=== PATIENT | female | born 1960 | race Caucasian/White ===

== ENCOUNTER 2024-10-01 20:49 | Emergency (ER) | payer OTHER, SELFPAY ==
[2024-10-01 20:57] VITALS: BP 139/68; PULSE 95; RESP 16; TEMP 36.6; O2SAT 98; BMI 31.6
--- NOTE | 2024-10-01 21:11 | ECG_ITS ---
Test Reason : MED CLEARANCE Blood Pressure : */* mmHG Vent. Rate : 90 BPM Atrial Rate : 90 BPM P-R Int : 152 ms QRS Dur : 80 ms QT Int : 398 ms P-R-T Axes : 74 3 32 degrees QTcB Int : 486 ms Artifact in tracing Normal sinus rhythm No obvious abnormalities cannot assess inferior leads due to artifact. No previous ECGs available Referred By: Generic ED Physician Electronically Signed By: LOU YANEZ
--- NOTE | 2024-10-01 21:18 | PC.NURSE ---
RN to RN report given to Cindy in POD, pt currently being changed over by Marina & in family room.
[2024-10-01 21:45] LABS: MANUAL DIFF FLAG NO
[2024-10-01 21:51] LABS: Basophils Percent Auto 0.6 % (0-2); Eosinophils Absolute Auto 0.1 X10*3/uL (0.0-0.4); Eosinophils Percent Auto 1.8 % (0-4); Hematocrit 40.3 % (37.0-47.0); Hemoglobin 13.6 g/dl (12.0-16.0); Imm Gran Abs Auto 0.02 X10*3/uL (0.00-0.03); Imm Gran Pct Auto 0.3 % (0.0-0.4); Lymphocytes Absolute Auto 2.3 X10*3/uL (1.2-4.9); Lymphocytes Percent Auto 31.6 % (20-40); Mean Corpuscular HGB Conc 33.7 g/dl (31.0-35.0); Mean Corpuscular Hemoglobin 32.2 pg (27.0-33.0); Mean Corpuscular Volume 95.5 fL (80.0-98.0); Mean Platelet Volume 10.4 fL (9.4-12.3); Monocytes Absolute Auto 0.7 X10*3/uL (0.1-1.2); Monocytes Percent Auto 9.1 % (2-11); Neutrophils Absolute Auto 4.1 x10*3/uL (2.0-8.3); Neutrophils Percent Auto 56.6 % (45-73); Platelet Count 315 X10*3/uL (160-400); Red Blood Count 4.22 X10*6/uL (4.20-5.50); Red Cell Distribution Width 13.6 % (11.0-16.0); White Blood Count 7.3 X10*3/uL (4.8-10.8)
[2024-10-01 21:52] LABS: Appearance Urine Clear; Color Urine Yellow; Glucose Urine UA Negative (Negative); Leukocyte Esterase Urine Negative (Negative); Nitrite Urine Negative (Negative); PH 6.5 (5.0-9.0); Specific Gravity - Urine <= 1.005 (1.005-1.025); Urine Blood Negative (Negative); Urine Ketones Trace mg/dL (Negative); Urine Protein Negative (Neg-Trace)
[2024-10-01 21:56] LABS: Amphetamine Screen Urine Not Detected (Not Detect); Barbiturates, Urine Not Detected (Not Detect); Benzodiazepines Screen Urine Not Detected (Not Detect); Buprenorphine Scr Not Detected (Not Detect); Cannabinoid Screen Urine Not Detected (Not Detect); Cocaine Screen Urine Not Detected (Not Detect); Fentanyl, urine Not Detected (Not Detect); Methadone Screen, Urine Not Detected (Not Detect); Opiate Screen Urine Not Detected (Not Detect); Oxycodone Screen Urine Not Detected (Not Detect); Phencyclidine Screen Urine Not Detected (Not Detect)
[2024-10-01 21:58] LABS: Anion Gap 16 (12-20); Blood Urea Nitrogen 8 mg/dL (9-16); Calcium 9.5 mg/dL (8.4-10.2); Carbon Dioxide 27 mmol/L (22-29); Chloride 103 mmol/L (96-108); Creatinine Clr Calc Pharmacy 95.2; Estimated Glomerular Filt Rate > 60; Ethanol < 10 mg/dL; Glucose Random 121 mg/dL (60-115); Potassium 3.8 mmol/L (3.3-5.1); Sodium 142 mmol/L (135-145)
--- NOTE | 2024-10-02 01:42 | ED_ITS ---
HPI - Anxiety General Chief Complaint: Anxiety Stated Complaint: crisis ptsd has lots of questions about BH Time Seen by Provider: 10/01/24 22:15 History of Present Illness ED Provider: Tevin De La Garza MD HPI narrative: This is a 64-year-old female with a history of anxiety. PCP attempting to treat this with SSRI which she tried for 1 month and she felt it increased her anxiety symptoms and stop. Recently she has been taking mirtazapine for insomnia. Patient also has longstanding type 1 diabetes. The patient's coming in feeling hopeless with significant anxiety trouble managing her symptoms outpatient. No SI or HI. She lives alone but has a male partner who she feels safe with. No drug or alcohol abuse. Patient feels challenging at this point taking care of her diabetes and functioning and eating daily life. She has tried to therapist a few times without success she is requesting evaluation for possible voluntary admission for stabilization Related Data Home Medications ?Medication ?Instructions ?Recorded ?Confirmed insulin degludec 100 unit/mL (3 14 unit subcut BEDTIME 10/02/24 10/02/24 mL) subcutaneous pen (Tresiba FlexTouch U-100 insulin) insulin lispro 100 unit/mL See Rx Instructions .Route .COMPLEX 10/02/24 10/02/24 subcutaneous pen (Humalog KwikPen (U-100) Insulin) levothyroxine 50 mcg tablet 50 mcg PO DAILY@0600 10/0210/03/24 mirtazapine 15 mg tablet 15 mg PO BEDTIME 10/02/24 Allergies Allergy/AdvReac Type Severity Reaction Status Date / Time No Known Allergies Allergy Verified 10/01/24 21:03 [facility] Social History Social History Smoked in Last 30 Days: No Use of substances other than those prescribed or required for medical reasons: No Advance Directives: No Advance Directives Information Provided: No Do you have a plan to hurt others: No Plan Patient : No Physical Exam 2 Vital Signs: Vital Signs: Last Vital Signs Temp 98.2 F 10/03/24 06:41 Pulse 79 10/03/24 06:41 Resp 16 10/03/24 06:41 BP 132/67 10/03/24 06:41 Pulse Ox 99 10/03/24 06:41 O2 Del Method Room Air 10/03/24 06:41 BMI result Body Mass Index 31.6 Const: Other: EXAM: Gen: Alert, awake, well appearing, well hydrated. Head: Atraumatic Eyes: Anicteric, Normal conjunctiva. ENT: Moist mucosa, no pallor. ? Neck: Supple. Skin: ?No observable rash or bruising on exposed or examined skin Respiratory: Breathing comfortably, No distress.Clear to auscultation bilaterally, symmetric chest expansion, No wheeze, rales, ronchi. Cardiovascular: Regular rate and rhythm. No murmurs or rub. Well perfused periphery, warm extremities. No edema. ? Abdominal: No FOCAL TENDERNESS. Soft, no objective distension. No palpable masses or obvious organomegaly. ?No guarding, no rebound tenderness or other peritoneal findings. : No flank tenderness. Neuro: Alert. Gross movement of all extremities intact. ? Psych: Calm. Cooperative. Expresses severe anxiety though looks calm no SI or HI. Well-kempt MSK: No grossly visible deformity. Vital signs: See flowsheet Course Reevaluation(s) Reevaluation #1: Time: 16:41 Date: 10/02/24 Provider: Idris Cline MD Patient in physician observation for psychiatric evaluation.? No acute events reported overnight. No current complaints. VS stable.? Patient is in bed search status. The patient was concerned that her insulin was not being managed based on counting of calories consumed. I explained to the patient that we had to use a sliding scale based on fingerstick glucose results. She expressed concern that she was not going to be receiving appropriate doses of insulin. She received Lantus insulin last night. I explained we would continue to monitor her glucose throughout the day. She ultimately seemed to accept this.. Will continue to monitor. Reevaluation #2: DR. Wesley's Progress note:10/03/2024 8;40. No events overnight, home medication reconciliation was done, VSS, no event reported by nursing overnight, inpatient bed search is underway, Continue with physician observation. Time: 08:39 Medications Administered Generic Name Dose Route Start Last Admin Trade Name Freq PRN Reason Stop Dose Admin Insulin Glargine 11 unit 10/02/24 21:00 10/02/24 21:47 Insulin Glargine,Hum.Rec.Anlog 100 Unit/Ml 10 Ml Vial SUBCUT 11 unit BEDTIME BABITA Administration Insulin Human Lispro 0 unit 10/03/24 16:30 10/03/24 12:58 Insulin Lispro 100 Unit/Ml 3 Ml Vial SUBCUT 6 unit QIDACHS [facility] Administration Protocol Levothyroxine Sodium 50 mcg 10/02/24 06:30 10/03/24 05:37 Levothyroxine Sodium 50 Mcg Tablet PO 50 mcg DAILY@0630 BABITA Administration Mirtazapine 15 mg 10/02/24 01:45 10/02/24 21:48 Mirtazapine 15 Mg Tablet PO 15 mg BEDTIME BABITA Administration Discontinued Medications Generic Name Dose Route Start Last Admin Trade Name Cori PRN Reason Stop Dose Admin Insulin Glargine 14 unit 10/02/24 02:13 10/02/24 02:31 Insulin Glargine,Hum.Rec.Anlog 100 Unit/Ml 10 Ml Vial SUBCUT 10/02/24 02:14 14 unit ONCE ONE Administration Insulin Human Lispro 0 unit 10/02/24 07:30 10/02/24 21:44 Insulin Lispro 100 Unit/Ml 3 Ml Vial SUBCUT 10/03/24 07:15 10 unit QIDACHS [facility] Administration Protocol Medical Decision Making Medical Decision Making MDM Narrative: 64-year-old female with severe debilitating anxiety. No SI or HI. No self-harm however she appears to not be able to manage her diabetes and other health and day-to-day issues given her anxiety level and insomnia. No drug abuse or alcohol abuse. Medically cleared at this time. Her long-acting insulin is non formulary written Lantus at 01:21 equivalent dose. Plan for a.m. psychiatry consultation the patient is desiring possible CV behavioral health admission though she does have concerns about her insurance. 10/02/242123 Arabella Cerrato MD The care team evaluated the patient. Patient will be going inpatient voluntarily. Patient having racing thoughts. No SI or HI. Patient not on a Section 12. Care team states that if the patient changes her mind throughout the night, she may be discharged home safely. Lab Data 10/01/24 21:39 10/01/24 21:39 Labs: Lab Results 10/01/24 10/02/24 10/02/24 Range/Units 21:39 07:26 09:50 WBC 7.3 (4.8-10.8) X10*3/uL RBC 4.22 (4.20-5.50) X10*6/uL Hgb 13.6 (12.0-16.0) g/dl Hct 40.3 (37.0-47.0) % MCV 95.5 (80.0-98.0) fL MCH 32.2 (27.0-33.0) pg MCHC 33.7 (31.0-35.0) g/dl RDW 13.6 (11.0-16.0) % Plt Count 315 (160-400) X10*3/uL MPV 10.4 (9.4-12.3) fL Immature Gran % (Auto) 0.3 (0.0-0.4) % Neut % (Auto) 56.6 (45-73) % Lymph % (Auto) 31.6 (20-40) % [place] % (Auto) 9.1 (2-11) % Eos % (Auto) 1.8 (0-4) % Baso % (Auto) 0.6 (0-2) % Lymph # (Auto) 2.3 (1.2-4.9) X10*3/uL [place] # (Auto) 0.7 (0.1-1.2) X10*3/uL Eos # (Auto) 0.1 (0.0-0.4) X10*3/uL Baso # (Auto) 0.0 (0.0-0.2) X10*3/uL Abs Immat Gran (auto) 0.02 (0.00-0.03) X10*3/uL Absolute Neuts (auto) 4.1 (2.0-8.3) x10*3/uL Absolute Nucleated RBC 0.000 (0.0-0.012) X10*3/uL Nucleated RBC % (auto) 0.0 (0.0-0.2) /100WBC Sodium 142 (135-145) mmol/L Potassium 3.8 (3.3-5.1) mmol/L Chloride 103 (96-108) mmol/L Carbon Dioxide 27 (22-29) mmol/L Anion Gap 16 (12-20) BUN 8 L (9-16) mg/dL Creatinine 0.64 (0.5-1.4) mg/dL Estim Creat Clear Calc 95.2 Estimated GFR > 60 POC Glucose 91 149 H (60-115) mg/dL Random Glucose 121 H (60-115) mg/dL Calcium 9.5 (8.4-10.2) mg/dL Urine Color Yellow Urine Appearance Clear Urine pH 6.5 (5.0-9.0) Ur Specific [place] <= 1.005 (1.005-1.025) Urine Protein Negative (Neg-Trace) mg/dL Urine Glucose (UA) Negative (Negative) mg/dL Urine Ketones Trace (Negative) mg/dL Urine Blood Negative (Negative) Urine Nitrite Negative (Negative) Ur Leukocyte Esterase Negative (Negative) Urine Opiates Screen Not Detected (Not Detect) Ur Buprenorphine Scrn Not Detected (Not Detect) ng/mL Ur Oxycodone Screen Not Detected (Not Detect) ng/mL Urine Methadone Screen Not Detected (Not Detect) ng/mL Urine Fentanyl Screen Not Detected (Not Detect) Ur Barbiturates Screen Not Detected (Not Detect) Ur Phencyclidine Scrn Not Detected (Not Detect) Ur Amphetamines Screen Not Detected (Not Detect) U Benzodiazepines Scrn Not Detected (Not Detect) Urine Cocaine Screen Not Detected (Not Detect) U Marijuana (THC) Screen Not Detected (Not Detect) Ethyl Alcohol < 10 mg/dL 10/02/24 10/02/24 10/02/24 Range/Units 13:07 15:20 17:21 WBC (4.8-10.8) X10*3/uL RBC (4.20-5.50) X10*6/uL Hgb (12.0-16.0) g/dl Hct (37.0-47.0) % MCV (80.0-98.0) fL MCH (27.0-33.0) pg MCHC (31.0-35.0) g/dl RDW (11.0-16.0) % Plt Count (160-400) X10*3/uL MPV (9.4-12.3) fL Immature Gran % (Auto) (0.0-0.4) % Neut % (Auto) (45-73) % Lymph % (Auto) (20-40) % [place] % (Auto) (2-11) % Eos % (Auto) (0-4) % Baso % (Auto) (0-2) % Lymph # (Auto) (1.2-4.9) X10*3/uL [place] # (Auto) (0.1-1.2) X10*3/uL Eos # (Auto) (0.0-0.4) X10*3/uL Baso # (Auto) (0.0-0.2) X10*3/uL Abs Immat Gran (auto) (0.00-0.03) X10*3/uL Absolute Neuts (auto) (2.0-8.3) x10*3/uL Absolute Nucleated RBC (0.0-0.012) X10*3/uL Nucleated RBC % (auto) (0.0-0.2) /100WBC Sodium (135-145) mmol/L Potassium (3.3-5.1) mmol/L Chloride (96-108) mmol/L Carbon Dioxide (22-29) mmol/L Anion Gap (12-20) BUN (9-16) mg/dL Creatinine (0.5-1.4) mg/dL Estim Creat Clear Calc Estimated GFR POC Glucose 178 H 303 H 305 H (60-115) mg/dL Random Glucose (60-115) mg/dL Calcium (8.4-10.2) mg/dL Urine Color Urine Appearance Urine pH (5.0-9.0) Ur Specific [place] (1.005-1.025) Urine Protein (Neg-Trace) mg/dL Urine Glucose (UA) (Negative) mg/dL Urine Ketones (Negative) mg/dL Urine Blood (Negative) Urine Nitrite (Negative) Ur Leukocyte Esterase (Negative) Urine Opiates Screen (Not Detect) Ur Buprenorphine Scrn (Not Detect) ng/mL Ur Oxycodone Screen (Not Detect) ng/mL Urine Methadone Screen (Not Detect) ng/mL Urine Fentanyl Screen (Not Detect) Ur Barbiturates Screen (Not Detect) Ur Phencyclidine Scrn (Not Detect) Ur Amphetamines Screen (Not Detect) U Benzodiazepines Scrn (Not Detect) Urine Cocaine Screen (Not Detect) U Marijuana (THC) Screen (Not Detect) Ethyl Alcohol mg/dL 10/02/24 10/02/24 10/03/24 Range/Units 21:33 22:44 06:21 WBC (4.8-10.8) X10*3/uL RBC (4.20-5.50) X10*6/uL Hgb (12.0-16.0) g/dl Hct (37.0-47.0) % MCV (80.0-98.0) fL MCH (27.0-33.0) pg MCHC (31.0-35.0) g/dl RDW (11.0-16.0) % Plt Count (160-400) X10*3/uL MPV (9.4-12.3) fL Immature Gran % (Auto) (0.0-0.4) % Neut % (Auto) (45-73) % Lymph % (Auto) (20-40) % [place] % (Auto) (2-11) % Eos % (Auto) (0-4) % Baso % (Auto) (0-2) % Lymph # (Auto) (1.2-4.9) X10*3/uL [place] # (Auto) (0.1-1.2) X10*3/uL Eos # (Auto) (0.0-0.4) X10*3/uL Baso # (Auto) (0.0-0.2) X10*3/uL Abs Immat Gran (auto) (0.00-0.03) X10*3/uL Absolute Neuts (auto) (2.0-8.3) x10*3/uL Absolute Nucleated RBC (0.0-0.012) X10*3/uL Nucleated RBC % (auto) (0.0-0.2) /100WBC Sodium (135-145) mmol/L Potassium (3.3-5.1) mmol/L Chloride (96-108) mmol/L Carbon Dioxide (22-29) mmol/L Anion Gap (12-20) BUN (9-16) mg/dL Creatinine (0.5-1.4) mg/dL Estim Creat Clear Calc Estimated GFR POC Glucose 383 H* 340 H 156 H (60-115) mg/dL Random Glucose (60-115) mg/dL Calcium (8.4-10.2) mg/dL Urine Color Urine Appearance Urine pH (5.0-9.0) Ur Specific [place] (1.005-1.025) Urine Protein (Neg-Trace) mg/dL Urine Glucose (UA) (Negative) mg/dL Urine Ketones (Negative) mg/dL Urine Blood (Negative) Urine Nitrite (Negative) Ur Leukocyte Esterase (Negative) Urine Opiates Screen (Not Detect) Ur Buprenorphine Scrn (Not Detect) ng/mL Ur Oxycodone Screen (Not Detect) ng/mL Urine Methadone Screen (Not Detect) ng/mL Urine Fentanyl Screen (Not Detect) Ur Barbiturates Screen (Not Detect) Ur Phencyclidine Scrn (Not Detect) Ur Amphetamines Screen (Not Detect) U Benzodiazepines Scrn (Not Detect) Urine Cocaine Screen (Not Detect) U Marijuana (THC) Screen (Not Detect) Ethyl Alcohol mg/dL 10/03/24 Range/Units 11:30 WBC (4.8-10.8) X10*3/uL RBC (4.20-5.50) X10*6/uL Hgb (12.0-16.0) g/dl Hct (37.0-47.0) % MCV (80.0-98.0) fL MCH (27.0-33.0) pg MCHC (31.0-35.0) g/dl RDW (11.0-16.0) % Plt Count (160-400) X10*3/uL MPV (9.4-12.3) fL Immature Gran % (Auto) (0.0-0.4) % Neut % (Auto) (45-73) % Lymph % (Auto) (20-40) % [place] % (Auto) (2-11) % Eos % (Auto) (0-4) % Baso % (Auto) (0-2) % Lymph # (Auto) (1.2-4.9) X10*3/uL [place] # (Auto) (0.1-1.2) X10*3/uL Eos # (Auto) (0.0-0.4) X10*3/uL Baso # (Auto) (0.0-0.2) X10*3/uL Abs Immat Gran (auto) (0.00-0.03) X10*3/uL Absolute Neuts (auto) (2.0-8.3) x10*3/uL Absolute Nucleated RBC (0.0-0.012) X10*3/uL Nucleated RBC % (auto) (0.0-0.2) /100WBC Sodium (135-145) mmol/L Potassium (3.3-5.1) mmol/L Chloride (96-108) mmol/L Carbon Dioxide (22-29) mmol/L Anion Gap (12-20) BUN (9-16) mg/dL Creatinine (0.5-1.4) mg/dL Estim Creat Clear Calc Estimated GFR POC Glucose 290 H (60-115) mg/dL Random Glucose (60-115) mg/dL Calcium (8.4-10.2) mg/dL Urine Color Urine Appearance Urine pH (5.0-9.0) Ur Specific [place] (1.005-1.025) Urine Protein (Neg-Trace) mg/dL Urine Glucose (UA) (Negative) mg/dL Urine Ketones (Negative) mg/dL Urine Blood (Negative) Urine Nitrite (Negative) Ur Leukocyte Esterase (Negative) Urine Opiates Screen (Not Detect) Ur Buprenorphine Scrn (Not Detect) ng/mL Ur Oxycodone Screen (Not Detect) ng/mL Urine Methadone Screen (Not Detect) ng/mL Urine Fentanyl Screen (Not Detect) Ur Barbiturates Screen (Not Detect) Ur Phencyclidine Scrn (Not Detect) Ur Amphetamines Screen (Not Detect) U Benzodiazepines Scrn (Not Detect) Urine Cocaine Screen (Not Detect) U Marijuana (THC) Screen (Not Detect) Ethyl Alcohol mg/dL Discharge Plan Discharge Clinical Impression: Acute anxiety Patient Disposition: Admitted As Inpatient
--- NOTE | 2024-10-02 01:50 | PC.NURSE ---
t/w spoke to client again who couldnt convey a numeric scale for humalog dosing stated i try to eat 40gms per meal)
[2024-10-02] MEDS: Insulin Glargine,Hum.rec.anlog 100 UNIT/ML 10 ML VIAL 14 UNIT SUBCUT (02:31)
[2024-10-02] MEDS: Mirtazapine 15 MG TABLET PO ×2 (02:31→21:48)
[2024-10-02 06:00] VITALS: RESP 16
[2024-10-02] MEDS: Levothyroxine Sodium 50 MCG TABLET PO (06:59)
--- NOTE | 2024-10-02 07:06 | PC.NURSE ---
Assumed care of patient at 0645, patient appears to be in no apparent distress this am, calm and cooperative, offering no complaints. Pt reporting to this RN that she does her sliding scale insulin based off carb counting rather than a point of care, Tor made aware. reports we are probably not able to accommodate carb counting dosing as we have no order set for that. Current plan for sliding scale based off POC
--- NOTE | 2024-10-02 07:21 | PC.NURSE ---
Pt expresses frustration over sliding scale insulin stating your insulin is not nearly as strong as the type I take, I need at least 14 units and I need to go off carb counting . Pt educated that Tresiba is a 1:1 substitute with Lantus and that we do not have a way to dose Lispro bedside the sliding scale POC. Pt informed that MD Steinberg and the pharmacist both confirmed this. Pt once again expresses frustration I am not going to dose at 2 units and then end up as a medical admission with a blood sugar of 500 .
[2024-10-02 07:32] VITALS: BP 136/73; PULSE 86; RESP 18; TEMP 37.1; O2SAT 99
[2024-10-02 07:32] LABS: Glucose, Whole Blood 91 mg/dL (60-115)
--- NOTE | 2024-10-02 07:36 | PC.NURSE ---
per pts morning POC (91), pt does not warrant Lispro this am (according to the sliding scale in the MAR). Pt demanding insulin from this RN. After speaking with MD Steinberg, decision was made to give pt 2 units of insulin along with her breakfast. when presented with this option, pt declined, stating No I am not going to be with a 500 blood sugar this is ridiculous . MD prince
[2024-10-02] MEDS: Insulin Lispro 100 UNIT/ML 3 ML VIAL SUBCUT ×4 (08:28→21:44)
[2024-10-02 09:54] LABS: Glucose, Whole Blood 149 mg/dL (60-115)
[2024-10-02 13:10] LABS: Glucose, Whole Blood 178 mg/dL (60-115)
[2024-10-02 15:24] LABS: Glucose, Whole Blood 303 mg/dL (60-115)
--- NOTE | 2024-10-02 15:26 | P.CNPS_ITS ---
History of Present Illness Chief Complaint: crisis ptsd has lots of questions about Diagnostics Vital Signs (24Hr): Vital Signs - 24 hr 10/01/24 20:57 10/02/24 06:00 10/02/24 07:32 Temperature 97.9 F 98.7 F Pulse Rate 95 86 Respiratory Rate 16 16 18 Blood Pressure 139/68 136/73 Pulse Oximetry 98 99 Oxygen Delivery Method Room Air Room Air BMI result Body Mass Index 31.6 Labs 10/01/24 21:39 10/01/24 21:39 Labs: Laboratory Results - last 48 hr 10/01/24 10/02/24 10/02/24 21:39 07:26 09:50 WBC 7.3 RBC 4.22 Hgb 13.6 Hct 40.3 MCV 95.5 MCH 32.2 MCHC 33.7 RDW 13.6 Plt Count 315 MPV 10.4 Immature Gran % (Auto) 0.3 Neut % (Auto) 56.6 Lymph % (Auto) 31.6 [place] % (Auto) 9.1 Eos % (Auto) 1.8 Baso % (Auto) 0.6 Lymph # (Auto) 2.3 [place] # (Auto) 0.7 Eos # (Auto) 0.1 Baso # (Auto) 0.0 Abs Immat Gran (auto) 0.02 Absolute Neuts (auto) 4.1 Absolute Nucleated RBC 0.000 Nucleated RBC % (auto) 0.0 Sodium 142 Potassium 3.8 Chloride 103 Carbon Dioxide 27 Anion Gap 16 BUN 8 L Creatinine 0.64 Estim Creat Clear Calc 95.2 Estimated GFR > 60 POC Glucose 91 149 H Random Glucose 121 H Calcium 9.5 Urine Color Yellow Urine Appearance Clear Urine pH 6.5 Ur Specific [place] <= 1.005 Urine Protein Negative Urine Glucose (UA) Negative Urine Ketones Trace Urine Blood Negative Urine Nitrite Negative Ur Leukocyte Esterase Negative Urine Opiates Screen Not Detected Ur Buprenorphine Scrn Not Detected Ur Oxycodone Screen Not Detected Urine Methadone Screen Not Detected Urine Fentanyl Screen Not Detected Ur Barbiturates Screen Not Detected Ur Phencyclidine Scrn Not Detected Ur Amphetamines Screen Not Detected U Benzodiazepines Scrn Not Detected Urine Cocaine Screen Not Detected U Marijuana (THC) Screen Not Detected Ethyl Alcohol < 10 10/02/24 10/02/24 13:07 15:20 WBC RBC Hgb Hct MCV MCH MCHC RDW Plt Count MPV Immature Gran % (Auto) Neut % (Auto) Lymph % (Auto) [place] % (Auto) Eos % (Auto) Baso % (Auto) Lymph # (Auto) [place] # (Auto) Eos # (Auto) Baso # (Auto) Abs Immat Gran (auto) Absolute Neuts (auto) Absolute Nucleated RBC Nucleated RBC % (auto) Sodium Potassium Chloride Carbon Dioxide Anion Gap BUN Creatinine Estim Creat Clear Calc Estimated GFR POC Glucose 178 H 303 H Random Glucose Calcium Urine Color Urine Appearance Urine pH Ur Specific [place] Urine Protein Urine Glucose (UA) Urine Ketones Urine Blood Urine Nitrite Ur Leukocyte Esterase Urine Opiates Screen Ur Buprenorphine Scrn Ur Oxycodone Screen Urine Methadone Screen Urine Fentanyl Screen Ur Barbiturates Screen Ur Phencyclidine Scrn Ur Amphetamines Screen U Benzodiazepines Scrn Urine Cocaine Screen U Marijuana (THC) Screen Ethyl Alcohol Medications Medications Current Medications Dextrose (Dextrose 50 % 25 Gm/50 Ml Syringe) 25 gm IVPUSH Q15M PRN; Protocol PRN Reason: per Hypoglycemia Standing Ord. Glucose (Glucose Gel 15 Gm Gel..Gram.) 15 gm PO Q15M PRN; Protocol PRN Reason: per Hypoglycemia Standing Ord. Insulin Glargine (Insulin Glargine,Hum.Rec.Anlog 100 Unit/Ml 10 Ml Vial) 11 unit SUBCUT BEDTIME [facility] Insulin Human Lispro (Insulin Lispro 100 Unit/Ml 3 Ml Vial) 0 unit SUBCUT QIDACHS [facility]; Protocol Stop: 10/03/24 07:15 Last Admin: 10/02/24 13:15 Dose: 2 unit Levothyroxine Sodium (Levothyroxine Sodium 50 Mcg Tablet) 50 mcg PO DAILY@0630 [facility] Last Admin: 10/02/24 06:59 Dose: 50 mcg Mirtazapine (Mirtazapine 15 Mg Tablet) 15 mg PO BEDTIME [facility] Last Admin: 10/02/24 02:31 Dose: 15 mg Allergies Allergies Allergy/AdvReac Type Severity Reaction Status Date / Time No Known Allergies Allergy Verified 10/01/24 21:03 Assessment & Plan Total time managing care of this patient today ____ minutes.
--- NOTE | 2024-10-02 16:57 | MHC.CARE ---
Addendum entered by Loida Beltran LCSW 10/02/24 22:28: CARE Team met with Pt to discuss IPLOC, PHP, outpatient therapy/psychiatry. Pt ultimately agreed to IPLOC voluntarily, however may want to discharge 10/03 if there is no bed availability at [facility]. ED provider and POD RN are aware. Original Note: Pt evaluated by the CARE Team earlier this morning who decided it was best to consult with psychiatry to determine an appropriate disposition. Diana Luque NP met with Pt and has ultimately decided that Pt can stay for an inpatient admission voluntarily or discharge at this time. T/W went to speak with Pt about her options and to answer questions she had. Pt reported that Diana is supposed to check in with her later to discuss the steve of hospitalization due to her insurance and to discuss potential length of treatment.
[2024-10-02 17:26] LABS: Glucose, Whole Blood 305 mg/dL (60-115)
[2024-10-02 18:32] VITALS: BP 132/74; PULSE 78; RESP 14; O2SAT 99
[2024-10-02 21:38] LABS: Glucose, Whole Blood 383 mg/dL (60-115)
[2024-10-02] MEDS: Insulin Glargine,Hum.rec.anlog 100 UNIT/ML 10 ML VIAL 11 UNIT SUBCUT (21:47)
[2024-10-02 22:47] LABS: Glucose, Whole Blood 340 mg/dL (60-115)
[2024-10-03] MEDS: Levothyroxine Sodium 50 MCG TABLET PO (05:37)
[2024-10-03 06:26] LABS: Glucose, Whole Blood 156 mg/dL (60-115)
[2024-10-03 06:41] VITALS: BP 132/67; PULSE 79; RESP 16; TEMP 36.8; O2SAT 99
--- NOTE | 2024-10-03 07:40 | PC.NURSE ---
Addendum entered by Elidia López 10/03/24 07:47: offered patient her 2units of insulin to cover her breakfast, patient not stating yes or no to whether she will take this Original Note: continues to express frustrations over insulin sliding scale. stating that it feels like our scale is just playing catch up . encouraged patient to request different low carb foods for meals, patient continues to request changes with insulin. will attempt to have pharmacy stock clerk and provider speak with patient however expressed to patient unsure if changes will be made or any specific time of these events occuring.
--- NOTE | 2024-10-03 10:53 | PHA.MEDREC ---
Addendum entered by Vanessa Tirado RPh 10/03/24 11:47: Reviewed by [facility] Original Note: Pharmacy Consult ? Medication Reconciliation Pharmacy reviewed med rec done by nursing. Spoke with pt and she confirmed the medications were correct on the med rec; pt was concerned about her Humalog. Pt confirmed she does her Humalog a little differently; pt tests her sugars before meals and states if her sugars are over 200 she injects 1 units and if her sugars are over 300 she injects 2 units but she also states she does injects her self based on how many carbs she eats in her meal (if she has a high carb meal she will inject up to 20 units at a time she stated. Pt also confirmed she is taking a Tresiba Flextouch Pen injecting 14 units at bedtime; pt requested we only use Tresiba and not to substitute it, pt can have someone bring it in.
--- NOTE | 2024-10-03 10:54 | MHC.CARE ---
At the time of this writing patient has agreed to be admitted to [facility]. Encouraged to call friend to bring her clothing/ toiletries etc.
[2024-10-03 11:34] LABS: Glucose, Whole Blood 290 mg/dL (60-115)
--- NOTE | 2024-10-03 11:37 | MHC.EDTECH ---
Patient worried about her glucose being high or low. Checked her BS and it was 290, nurse aware
--- NOTE | 2024-10-03 12:41 | PC.NURSE ---
patient continues to fixate on insulin dosages. informed patient of the decision made to continue w/ the insulin sliding scale. patient stating that this was not how it was on previous shifts.
[2024-10-03] MEDS: Insulin Lispro 100 UNIT/ML 3 ML VIAL SUBCUT ×2 (12:58→18:16)
--- NOTE | 2024-10-03 14:13 | MHC.CARE ---
[facility] for Ezekiel Perea, her significant other [phone] requesting call back. Called [facility] crisis due to the report she had been seen in the [facility] ED. Spoke with Maira who reports that the psych consult team saw patien in August, the request for psych consult indicated that she reported anxiety/ sleep issues and for dispo. Patient, when assessed was prescribed trazodone 50mg and ativan 1mg. She declined IPLOC at that time and reports a desire to follow up with OP. The psych consult note indicate that they increased her trazodone. Additionally it was noted that she had no hx of IPLOC. Maira shares that it seems patient and her partner did not reside together at the time of that assessment.
[2024-10-03 18:13] LABS: Glucose, Whole Blood 239 mg/dL (60-115)
--- NOTE | 2024-10-03 19:35 | PC.NURSE ---
upon arrival conflicting information arises regarding disposition of patient
[2024-10-03 20:38] VITALS: BP 121/76; PULSE 88; RESP 16; TEMP 37; O2SAT 99
[2024-10-03 21:26] VITALS: BP 112/78; PULSE 80; RESP 16; TEMP 37; O2SAT 99
--- NOTE | 2024-10-03 21:26 | MHC.CARE ---
CARE Team met with Pt earlier this evening to offer a CV as Pt had been accepted to [facility]. Upon offering the CV, Pt expressed ambivalence towards [facility], ruminating in several worries concerning the potential length of treatment, management of diabetes and the structured environment of the unit. Pt was informed that she had agreed to treatment voluntarily and that we could not force treatment on her, however that she needed to decide whether to go to [facility] or discharge. After some time, it was decided that Pt would discharge with safety planning and resources. Case was discussed with ED Provider Juan Manuel Chaudhry MD and AKILAH Majano who are in agreement with this plan.
[2024-10-03 22:11] VITALS: BP 112/78; PULSE 68; RESP 16; TEMP 37; O2SAT 99
== END 2024-10-03 21:30 | disposition home or self-care (01) ==
LOC: HO.ED 22:26 → HO.PGERI 10-03 17:20 → HO.ED 10-03 22:08
PROVIDERS: Social Worker; Emergency Provider Emergency Medicine; PCP Internal Medicine
DX: F41.9 Anxiety disorder, unspecified (principal); E10.9 Type 1 diabetes mellitus without complications; Z79.4 Long term (current) use of insulin
CPT/HCPCS: 36415; 80048; 80307; 81003; 82947; 85025; 93005; 99285; S9485

== ENCOUNTER → 2024-10-01 21:11 | Outpatient (BNV) | payer OTHER, SELFPAY | PROVIDERS: Emergency Provider Emergency Medicine; PCP Internal Medicine; Visit Provider Internal Medicine | DX: Z13.6 Encounter for screening for cardiovascular disorders (principal) | CPT/HCPCS: 93010 ==